=== PATIENT | male | born 1940 | race Caucasian/White ===

== ENCOUNTER 2020-05-21 14:06 | Emergency (ER) | payer MEDICARE, SELFPAY ==
--- NOTE | 2020-05-21 14:15 | ED.EAR ---
HPI - Ear Problem General Chief complaint: Ear Stated complaint: ear pain Time Seen by Provider: 05/21/20 14:15 Source: patient Mode of arrival: ambulatory Limitations: no limitations History of Present Illness HPI Narrative: Lou Mcconnell is an 80-year-old male with a PMH of A. fib, BPH, hypothyroidism, HTN, GERD, who comes to express care with right ear pain- states has been going on for a few days. Used home remedies with no improvement. Related Data Home Medications Medication Instructions Recorded Confirmed cholecalciferol (vitamin D3) 50 50 mcg PO DAILY 11/10/19 mcg (2,000 unit) capsule diltiazem HCl 180 mg 180 mg PO DAILY 11/10/19 capsule,extended release 24 hr glucosamine [id number] 1 tablet PO BID tablet 11/10/19 lexie 1,500 mg-400 unit-100 mg tablet losartan 100 1 tablet PO DAILY 11/10/19 mg-hydrochlorothiazide 25 mg tablet magnesium 250 mg tablet 250 mg PO DAILY 11/10/19 multivitamin 1 tablet PO DAILY 11/10/19 omeprazole 20 mg capsule,delayed 20 mg PO DAILY 11/10/19 release sotalol 80 mg tablet 80 mg PO DAILY 11/10/19 aspirin 81 mg tablet,delayed 81 mg PO DAILY 05/17/20 release amlodipine 05/21/20 hydrochlorothiazide 05/21/20 levothyroxine [Euthyrox] 05/21/20 Allergies Allergy/AdvReac Type Severity Reaction Status Date / Time No Known Allergies Allergy Verified 05/17/20 13:44 Review of Systems Review of Systems: Narrative: CONSTITUTIONAL: Denies fever, chills, sweats. EYES: Denies visual changes, redness, discharge. ENT: Denies rhinorrhea, congestion, sore throat, right otalgia. CARDIOVASCULAR: Denies chest pain, palpitations, edema. RESPIRATORY: Denies dyspnea, wheezing, cough GASTROINTESTINAL: Denies abdominal pain, nausea, vomiting, diarrhea. GENITOURINARY: Denies dysuria, hematuria, abnormal discharge SKIN: Denies rash or itching. NEUROLOGIC: Denies numbness, or focal weakness. PSYCHIATRIC: Denies anxiety or depression. [facility] Family History Family History Mother Family history of respiratory disorder Father Family history of malignant neoplasm Patient's father is Social History Social History Smoking status: Former smoker Second hand tobacco smoke exposure: No Smoking end date: 11/18/1964 Alcohol intake: never Comments At time of signature, I agree with nursing past medical, surgical, social and family history. There is no relevant family history pertinent to the presenting complaint. Exam Narrative: Exam Narrative: GENERAL: This is a well-nourished, well-developed patient, in mild distress. HEAD: normocephalic, atraumatic. EYES: Sclera clear/white. Vision is grossly intact. EARS: External ears normal, L auditory canals clear and without drainage, R ear - Qtip up against TM. Hearing grossly intact. NOSE: External nose normal without nasal discharge, nares without redness, no rhinorrhea. THROAT: Mucous membranes moist, NECK: Neck supple, CARDIOVASCULAR: Regular rate and rhythm without murmurs, gallops, or rubs. RESPIRATORY: Clear to auscultation. Breath sounds equal bilaterally. No wheezes, rales, or rhonchi. GASTROINTESTINAL: Abdomen soft, SKIN: warm, intact with no suspicious lesions or rash, good texture and turgor. NEURO: awake, alert, and oriented to person, place and time. There were no obvious focal neurologic abnormalities. Steady gait EXTREMITIES: Normal range of motion. BACK: Nontender without deformity Course Course Emergency Course: Ear washed out with peroxide/water - cotton removed- started on polymixin ear gtts Directions to not use Q-tips in ears follow-up with primary care physician Vital Signs Vital signs: Vital Signs Temperature 99.0 F 05/21/20 14:16 Pulse Rate 81 05/21/20 14:16 Respiratory Rate 16 05/21/20 14:16 Blood Pressure 137/79 05/21/20 14:16 Pulse Oxi
[2020-05-21 14:16] VITALS: BP 137/79; PULSE 81; RESP 16; TEMP 37.2; O2SAT 99
--- NOTE | 2020-05-21 14:25 | PC.NURSE ---
sewage plant operator in to do ear irrigation. possible fb. qtip.
== END 2020-05-21 14:41 | disposition home or self-care (01) ==
PROVIDERS: Emergency Provider Nurse Practitioner; PCP Internal Medicine
DX: S00.451A Superficial foreign body of right ear, initial encounter (principal); E03.9 Hypothyroidism, unspecified; I10 Essential (primary) hypertension; X58.XXXA Exposure to other specified factors, initial encounter
CPT/HCPCS: 99213; G0463

== ENCOUNTER 2020-10-05 12:29 | Outpatient (CLI) | payer MEDICARE, SELFPAY ==
--- NOTE | ~2020-10-05 | CT_ITS ---
EXAMINATION: CT abdomen pelvis wo con DATE: 10/05/2020 12:49 INDICATION: Kidney disease TECHNIQUE: Computed tomography (CT) of the abdomen and pelvis was performed without intravenous contr ast. Automated exposure control and iterative reconstruction technique were employed. Exam dose: 470 .67 mGy-cm total exam DLP. COMPARISON: 12/07/2011 CT abdomen pelvis with IV contrast material FINDINGS: Cardiomegaly. Sternotomy/Aortic valve replacement. No pericardial or pleural effusion. There is mild atelectasis and/or scarring at the lung bases. Small sliding hiatal hernia. The liver, gallbladder, bile ducts, spleen and pancreas are unremarkable other than some calcified sp lenic granulomas. No bile duct or pancreatic duct dilatation. Normal morphology of the adrenal glands. There are at least 5 pinpoint nonobstructing right renal calculi. There is bilateral renal atrophy an d scarring. No ureteral calculus or hydroureteronephrosis. Left anterolateral urinary bladder diverti cula, the largest measuring approximately 2.4 cm. Moderate prostate enlargement. Prostate calcification. There is extensive abdominal aortic calcification but no aneurysm. There are calcifications at the or igins of the superior mesenteric and renal and inferior mesenteric arteries. No intraperitoneal or re troperitoneal or pelvic mass lesion or adenopathy or ascites. Diverticulosis of the left colon; no CT evidence of diverticulitis. No bowel obstruction, bowel wall thickening, pneumatosis or intraperitoneal free air. Stable evidence of appendectomy. No suspicious osteolytic or osteoblastic lesions. IMPRESSION: Bilateral renal atrophy and scarring Cardiomegaly, aortic valve replacement Small sliding hiatal hernia Nonobstructive nephrolithiasis of right kidney Urinary bladder diverticula Prostate enlargement and calcification Diverticulosis of the colon Reviewed, dictated and finalized at [facility]. Reviewed, dictated and finalized at location B. OMIC ADVISER
== END 2020-10-05 12:30 | disposition home or self-care (01) ==
PROVIDERS: PCP Internal Medicine; Visit Provider Urology
DX: N20.0 Calculus of kidney (principal); Z95.2 Presence of prosthetic heart valve; K44.9 Diaphragmatic hernia without obstruction or gangrene; N40.0 Benign prostatic hyperplasia without lower urinary tract symptoms; I70.0 Atherosclerosis of aorta; K57.30 Diverticulosis of large intestine without perforation or abscess without bleeding; N26.1 Atrophy of kidney (terminal); N32.3 Diverticulum of bladder
CPT/HCPCS: 74176

== ENCOUNTER → 2021-10-06 02:39 | Outpatient (CLI) | payer MEDICARE, SELFPAY ==
[2021-10-06 16:36] LABS: SARS-CoV-2 RNA PCR Positive
== END ==
PROVIDERS: PCP Internal Medicine; Visit Provider Physician Assistant
DX: U07.1 COVID-19 (principal)
CPT/HCPCS: C9803; U0003; U0005

== ENCOUNTER 2021-10-09 10:34 | Outpatient (RCR) | payer MEDICARE, SELFPAY ==
[2021-10-09 15:25] VITALS: BP 172/69; PULSE 62; RESP 18; TEMP 36.6; O2SAT 97
[2021-10-09] MEDS: FAMOTIDINE 20 MG TABLET PO (15:27)
[2021-10-09] MEDS: ACETAMINOPHEN 325 MG TABLET 650 MG PO (15:27)
[2021-10-09] MEDS: diphenhydrAMINE HCl CAP 25 MG CAPSULE PO (15:28)
--- NOTE | 2021-10-10 13:30 | PCDIET ---
Called Mr Mcconnell and he stated he is more nausea today and coughing more today,but using Mucinex as he was told to do by his caregiver. He does not have any other questions and will call PCP if not better after the Thanksgi holiday.
== END 2021-10-09 16:00 ==
LOC: AMCINF 10:34
PROVIDERS: PCP Internal Medicine; Visit Provider Internal Medicine Hematology & Oncology
DX: Z23 Encounter for immunization (principal); U07.1 COVID-19; I10 Essential (primary) hypertension; I25.10 Atherosclerotic heart disease of native coronary artery without angina pectoris
CPT/HCPCS: A9270; M0243; Q0243

== ENCOUNTER 2022-09-03 07:00 | Outpatient (NON) | payer MEDICARE, SELFPAY | END 2022-09-03 07:01 | disposition home or self-care (01) | LOC: ANHLAB 09-10 16:25 | PROVIDERS: PCP Internal Medicine; Visit Provider Nurse Practitioner | DX: C44.329 Squamous cell carcinoma of skin of other parts of face (principal) | CPT/HCPCS: 88305; 88331 ==

== ENCOUNTER 2022-09-03 14:27 | Outpatient (NON) | payer MEDICARE, SELFPAY | END 2022-09-03 14:28 | disposition home or self-care (01) | LOC: ANHLAB 14:28 | PROVIDERS: PCP Internal Medicine; Visit Provider Nurse Practitioner | DX: C44.92 Squamous cell carcinoma of skin, unspecified (principal) | CPT/HCPCS: 88305; 88331 ==

== ENCOUNTER 2022-09-24 17:32 | Outpatient (NON) | payer MEDICARE, SELFPAY | END 2022-09-24 17:33 | disposition home or self-care (01) | LOC: ANHLAB 17:33 | PROVIDERS: PCP Internal Medicine; Visit Provider Nurse Practitioner | DX: C44.92 Squamous cell carcinoma of skin, unspecified (principal) | CPT/HCPCS: 88305; 88331 ==

== ENCOUNTER → 2023-01-07 12:29 | Outpatient (CLI) | payer MEDICARE, SELFPAY ==
--- NOTE | ~2023-01-07 | XR_ITS ---
XR chest 2V 01/07/2023 12:43 Indication: Asbestos exposure. Procedure: 2 view chest Comparison: Comparison to multiple prior studies sequentially, with oldest reviewed study dated 01/05. Findings: Bibasilar airspace disease, compatible with pneumonia. Small pleural effusions. Status post median sternotomy for CABG. Heart size normal. No acute osseous abnormality. Impression: 1: Bibasilar airspace disease may represent pneumonia and/or atelectasis. 2: Small pleural effusions. Reviewed, dictated and finalized at location B. CH FOREMAN Impression: 1: Bibasilar airspace disease may represent pneumonia and/or atelectasis. 2: Small pleural effusions.
== END ==
PROVIDERS: PCP Internal Medicine; Visit Provider Internal Medicine
DX: Z77.090 Contact with and (suspected) exposure to asbestos (principal); J90 Pleural effusion, not elsewhere classified; R91.8 Other nonspecific abnormal finding of lung field
CPT/HCPCS: 71046

== ENCOUNTER 2023-07-04 14:05 | Outpatient (CLI) | payer MEDICARE, SELFPAY ==
--- NOTE | ~2023-07-04 | CT_ITS ---
EXAMINATION:CT chest high resolution wo ny DATE: 07/04/2023 14:28 INDICATION: Abnormal chest radiograph. TECHNIQUE: Computed tomography (CT) of the chest was performed without intravenous contrast. Automate d exposure control and iterative reconstruction technique were employed. The dose-length product (DLP ) was 335.36 mGy-cm. COMPARISON: Chest 2 views 01/07/2023, chest CT 12/09/2015, CT abdomen and pelvis 10/05/2020 FINDINGS: There is mild emphysema. There is bilateral pleural thickening inferiorly. No pleural effus ion. There is mild peripheral rounded atelectasis in the right middle lobe, lower lobes, and lingula. Calcified pulmonary nodules and calcified hilar and mediastinal lymph nodes are consistent with old granulomatous disease. Cardiomegaly is noted. There are coronary artery calcifications. There are winifred nges of coronary artery bypass grafting aortic valve replacement. No pericardial effusion. Calcificat ions in the spleen are consistent with old granulomatous disease. There is a 2 mm stone in right kidn ey. Aortic atherosclerosis is noted. There is severe cervical spondylosis and mild thoracic spondylo sis. IMPRESSION: 1. Chronic bilateral pleural thickening with chronic rounded atelectasis in the inferior lungs. 2. Mild emphysema. Reviewed, dictated and finalized at location A.
== END 2023-07-04 14:06 | disposition home or self-care (01) ==
PROVIDERS: PCP Internal Medicine; Visit Provider Internal Medicine
DX: J98.11 Atelectasis (principal); J92.9 Pleural plaque without asbestos; J43.9 Emphysema, unspecified
CPT/HCPCS: 71250

== ENCOUNTER 2025-03-15 10:57 | Emergency (ER) | payer MEDICARE, SELFPAY ==
--- NOTE | ~2025-03-15 | XR_ITS ---
EXAMINATION: XR abdomen/kub 1V DATE: 03/15/2025 15:13 INDICATION: Constipation TECHNIQUE: A supine view of the abdomen on 2 radiographs was obtained. COMPARISON: CT dated 10/05/2020 FINDINGS: No significant evident colonic stool. There is gas scattered throughout multiple nondilated loops of bowel in the abdomen and pelvis. 2 mm stone projecting of the mid right kidney. Lung bases are clear. Heart size is normal. Surgical clips project over the heart likely related to prior coronary artery bypass grafting. Mild lumbar dextrocurvature with mild spondylosis. IMPRESSION: 1. Nonobstructive bowel gas pattern with no significant colonic stool. 2. 2 mm right renal stone. Reviewed, dictated and finalized at location B.
[2025-03-15 11:23] VITALS: BP 147/85; PULSE 78; RESP 16; TEMP 36.5; O2SAT 98
--- OUTSIDE RECORDS SUMMARY | 2025-03-15 12:50 | XMS_ITS | Clinical Summary ---
Author Organization [facility] Address [address], [address] [address] Phone Care Team Providers Care Hand Bootmaker Name Role Phone BangLazaro michael Cherise CUNNINGHAM Primary Care Provider Allergies No known active allergies Medications polyethylene glycol (MIRALAX) Powder Use entire 255g bottle with 64oz of clear liquid as directed for colonoscopy prep. 255 g 7 Active sotalol (BETAPACE) 80 MG Tablet TK 1 T PO BID 3 7 Active levothyroxine (SYNTHROID) 75 MCG Tablet TK 1 T PO QD 2 7 Active atorvastatin (LIPITOR) 20 MG Tablet TK 1 T PO QD 2 7 Active omeprazole (PRILOSEC) 20 MG CAPSULE DELAYED RELEASE TK 1 C PO QD AC 2 7 Active doxazosin (CARDURA) 8 MG Tablet TK 1 T PO QD 1 7 Active losartan-hydroc hlorothiazide (HYZAAR) 100-12.5 MG Tablet TK 1 T PO D 1 7 Active vitamin E (TOCOPHEROL) 400 UNIT Capsule Take 400 Units by mouth daily. Active vitamin b-12 (CYANOCOBALAMIN ) 500 MCG Tablet Take 500 mcg by mouth daily. Active Pyridoxine HCl (VITAMIN B6) 200 MG Tablet Take by mouth. A ctive Cholecalciferol (VITAMIN D-3 SUPER STRENGTH) 2000 UNIT Tablet Take by mouth. Activ e Coenzyme Q10 (COQ10) 200 MG Capsule Take by mouth. Activ e Potassium 99 MG Tablet Take by mouth. Activ e Social History Tobacco Use Types Packs/Day Years Used Date Smoking Tobacco: Former Smokeless Tobacco: Never Alcohol Use Standard Drinks/Week Comments No 0 (1 standard drink = 0.6 oz pur e alcohol) Sex and Gender Information Value Date Recorded Sex Assigned at Not on file Legal Sex Male 9:24 PM CDT Gender Identity Not on file Sexual Orientation Not on file Plan of Treatment Health Maintenance Due Date Last Done Comments Hepatitis C Virus (HCV) Screening 1940 TdaP Immunization 1940 Pneumococcal Immunization (5 0+ years) (1 of 1 - PCV) 1989 Zoster Immunization (1 of 2) 1989 Respiratory Syncytial Virus (RSV) Immunization (Adult) (1 - 1-dose 75+ series) 2014 Influenza Immunization (#1) 2024 SARS-COV-2 Immunization (1 - 2023- season) 2024 Hepatitis B Immunization Aged Out No longer eligible based on patient's age to complete this topic Meningococcal Immunization (ACWY) Aged Out No longer eligible based on patient's age to complete this topic Rotavirus Immunization Aged Out No lo nger eligible based on patient's age to complete this topic Care Teams Hand Bootmaker Relationship Specialty Start Date End Date Lazaro Walters DO [address] [place] [address] PCP - General Internal Medicine 06/14/17
--- OUTSIDE RECORDS SUMMARY | 2025-03-15 12:50 | XMS_ITS | Encounter Summary ---
Author Organization [facility] Address [address] [place] [address] Care Team Providers Care Steam Tunnel Feeder Name Role Phone Lazaro Walters MD Primary Care Provider [phone]- [phone] Lazaro Walters MD Primary Care Provider [phone]- [phone] Encounter Details Date Type Department Care Team (Late st Contact Info) Description 11/01/2016 Orders Only [facility] ProviderDragan MD [address] [place] [address] Social History Tobacco Use Types Packs/Day Years Used Date Smoking Tobacco: Former Cigarettes Q uit: 11/18/1964 Alcohol Use Standard Drinks/Week Comments No 0 (1 standard drink = 0.6 oz pur e alcohol) Sex and Gender Information Value Date Recorded Sex Assigned at Not on file Legal Sex Male 1:56 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 Historical Provider [facility] Final Result documented in this encounter Visit Diagnoses Not on filedocumented in this encounter Care Teams Steam Tunnel Feeder Relationship Specialty Start Date End Date Lazaro Walters MD [address] [place] [address] PCP - General 02/15/17 Lazaro Walters MD [address] [address] PCP - General 11/03/15 02/14/17 documented as of this encounter
--- OUTSIDE RECORDS SUMMARY | 2025-03-15 12:50 | XMS_ITS | Encounter Summary ---
Author Organization [facility] Address [address] [place] [address] Care Team Providers Care Criminology Professor Name Role Phone Lazaro Walters MD Primary Care Provider [phone]- [phone] Lazaro Walters MD Primary Care Provider +1- [phone] Encounter Details Date Type Department Care Team (Late st Contact Info) Description 02/11/2017 Orders Only [facility] ProviderDragan MD [address] [place] [address] Social History Tobacco Use Types Packs/Day Years Used Date Smoking Tobacco: Former Cigarettes Q uit: 11/18/1964 Alcohol Use Standard Drinks/Week Comments No 0 (1 standard drink = 0.6 oz pur e alcohol) Sex and Gender Information Value Date Recorded Sex Assigned at Not on file Legal 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 Historical Provider [facility] Final Result documented in this encounter Visit Diagnoses Not on filedocumented in this encounter Care Teams Criminology Professor Relationship Specialty Start Date End Date Lazaro Walters MD [address] [place] [address] PCP - General 02/15/17 Lazaro Walters MD [address] [address] PCP - General 11/03/15 02/14/17 documented as of this encounter
--- OUTSIDE RECORDS SUMMARY | 2025-03-15 12:50 | XMS_ITS | Clinical Summary ---
Author Organization [facility] [address] Address [address] [place] [address] Care Team Providers Care Automobile Upholstery Trim Installer Name Role Phone Lazaro Walters MD Primary Care Provider +1- [phone] Allergies No known active allergies Medications multivitamin tablet tablet take 1 tablet by oral route every day with food 0 04/21/20 12 Active cyanocobalamin (vitamin B-12) 500 mcg tablet take 1 by Oral route once 0 0 05/06/20 14 Active aspirin (ASPIRIN LOW DOSE) 81 mg tablet take 1 tablet by oral route every day 0 0 12/30/19 16 Active doxazosin (CARDURA) 8 mg tablet take 1 tablet by oral route every day 0 04/21/20 12 Active GLUCOSAMINE HCL/CHONDR [place] A NA (GLUCOSAMINE-C HONDROITIN) 167-133 mg capsule take one by mouth daily 0 0 11/01/20 16 Active cholecalcifero l (VITAMIN D3) 2,000 unit capsule take 1 by Oral route once 0 0 11/01/20 16 Active omeprazole (PriLOSEC) 20 mg capsule Take 1 capsule (20 mg total) by mouth daily. 0 03/17/20 18 Active potassium 99 mg tablet Take 1 tablet (99 mg total) by mouth daily Active levothyroxine (Synthroid) 75 mcg tablet Take 1 tablet (75 mcg total) by mouth construction project coordinator before breakfast 0 08/07/20 21 Active sotaloL (BETAPACE) 80 mg tablet Take 1 tablet (80 mg total) by mouth daily 90 tablet 02/03/20 25 Active losartan-hydro CHLOROthiazide (HYZAAR) 100-12.5 mg per tablet Take 1 tablet by mouth once daily 100 tablet 2 03/01/20 25 Active losartan-hydro CHLOROthiazide (HYZAAR) 100-12.5 mg per tablet Take 1 tablet by mouth daily 100 tablet 1 08/06/20 24 025 Discontinued Active Problems Problem Noted Date Diagnosed Date Dizziness 08/22/2022 Bradycardia 08/20/2022 Medication management 07/15/2019 Erectile dysfunction 03/17/2018 Hypercholesterolemia 03/19/2016 Overview (02/21/2017): Hypercholesterolemia S/P aortic valve replacement with bioprosthetic valve 12/30/2015 Overview (02/22/2017): S/P aortic valve replacement with bioprosthetic valve Paroxysmal atrial flutter 12/30/2015 Overview (02/22/2017): Atrial flutter, paroxysmal History of coronary artery bypass surgery 2015 Overview (02/22/2017): Hx of CABG Follow-up examination follow ing treatment with high-risk medication 12/30/2015 Overview (02/22/2017): alf current use of antiarrhythmic drug Upper gastrointestinal hemorrhage 12/30/2015 Overview (02/22/2017): Upper GI bleed Essential hypertension 12/30/2015 Overview (02/22/2017): Essential hypertension 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 Overview (02/22/2017): STATUS-POST PTCA Pure hypercholesterolemia 04/03/2014 Overview (02/21/2017): PURE HYPERCHOLESTEROLEM 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 04/03 Overview (02/21/2017): CRNRY ATHRSCL NATVE VSSL Resolved Problems Problem Noted Date Diagnosed Date Resolved Date Nonrheumatic aortic valve stenosis 12/30/2015 08/20/2022 Overview (02/22/2017): Non-rheumatic aortic stenosis Benign hypertension 04/03/2014 03/17/20 18 Overview (02/21/2017): BENIGN HYPERTENSION Surgical History Surgery Date Site/Laterality Comments KNEE SURGERY Knee surgery HEART SURGERY HERNIA REPAIR Medical History Medical History Date Comments Gastroesophageal reflux disease GERD Hx Other Medical Cataracts Calculus of kidney Kidney Stones Heart disease 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 Thyroid disease HL (hearing loss) Family History Medical History Relation Name Comments Cancer Brother Other Father Old age; Pneumonia Mother Pneumonia; Caus e of : Pneumonia Cancer Other Cancer Sister Relation Name Status Comments Brother Father Alive Mother (Age 44) Other Sister Social History Tobacco Use Types Packs/Day Years Used Date Smoking Tobacco: Former Cigarettes Q uit: 03/17/1964 Smokeless Tobacco: Never Tobacco Cessation:Counseling Given: Not Answered Alcohol Use Standard Drinks/Week Comments Yes 0 (1 standard drink = 0.6 oz pur e alcohol) Sex and Gender Information Value Date Recorded Sex Assigned at Not on file Legal Sex Male 1:56 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 Gender Identity Not on file Sexual Orientation Not on file Obstetrics History Last Filed Vital Signs Vital Sign Reading Time Taken Comments Blood Pressure 130/78 12/01/2024 2:53 PM PILOT 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 Pulse 83 12/01/2024 2:53 PM PILOT 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 Temperature 36.7 C (98 F) 09/06/2020 1:12 PM CDT Respiratory Rate 16 10/27/2024 11:51 AM PILOT 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 Oxygen Saturation 96% 12/01/2024 2:53 PM PILOT 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 Inhaled Oxygen Concentration - - Weight 85.7 kg (189 lb) 12/01/2024 2:53 PM PILOT 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 Height 177.8 cm (5' 10 ) 12/01/2024 2:53 PM PILOT 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 Body Mass Index 27.12 12/01/2024 2:53 PM PILOT 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 Plan of Treatment Health Maintenance Due Date Last Done Comments Depression Screening 1940 Fall Risk Assessment 1940 DTaP/Tdap/Td Vaccine (1 - Tdap) 1950 Hepatitis B Screening 1957 Zoster Vaccine (1 of 2) 1989 Well Visit 65+ 02/09/2004 Pneumococcal vaccine 65+ (2 of 2 - PPSV23) 10/10/2016 10/10/2015 Influenza Vaccine (Season Ended) 2025 09/08/2018, 08/18/2017, 09/19/2016, Additional history exists Insurance [employer] MEDICARE GOLD [facility] T MEDICARE GOLD [employer] MEDICARE GOLD Care Teams Automobile Upholstery Trim Installer Relationship Specialty Start Date End Date Lazaro Walters MD [address] [facility] [place] [address] PCP - General 02/15/17
--- OUTSIDE RECORDS SUMMARY | 2025-03-15 12:50 | XMS_ITS | Encounter Summary ---
Author Organization [facility] Address [address] [place] [address] Care Team Providers Care Entry Level Name Role Phone Lazaro Walters DO Primary Care Provider [phone] Encounter Details Date Type Department Care Team (Late st Contact Info) Description 08/01/2022 Lab Requisition [facility] DermPath Lab [address] [facility] [place] [id number] Lloyd Liu MD [address] [place] [address] Social History Tobacco Use Types Packs/Day Years Used Date Smoking Tobacco: Never Assessed Sex and Gender Information Value Date Recorded Sex Assigned at Not on file Legal Sex Male 4:47 PM CDT Gender Identity Not on file Sexual Orientation Not on file documented as of this encounter Plan of Treatment Not on file documented as of this encounter Procedures Procedure Name Priority Date/Time Associated Diagnosis Comments DERMATOPATHOLOGY Routine 07/31/2022 12:0 0 AM CDT documented in this encounter Results * DERMATOPATHOLOGY (07/31/2022 12:00 AM CDT) Case Report Dermatopathology Report Case: [id number] Authorizing Provider: Lloyd Liu MD Collected: 07/31/2022 12:00 AM Ordering Location: [facility] DermPath Lab Received: 08/01/2022 02:03 PM Pathologist: Radha Santos MD Specimens: A) - Skin, post border left sideburn B) - Skin, left med to preauricular scar C) - Skin, below and post to left earlobe D) - Skin, above mid left jawline 2 3:37 PM T DERMATOPATHOLOGY LABORATORY Final Diagnosis Specimen A. SKIN, post border left sideburn: SQUAMOUS CELL CARCINOMA, MODERATELY DIFFERENTIATED (C44.329) Specimen B. 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 SKIN, below and post to left earlobe: SQUAMOUS CELL CARCINOMA IN SITU (SOSA'S DISEASE) (D04.22) Specimen D. 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 The specimen consists of a shave biopsy measuring [id number]. Jar 0. Specimen B: Received is one formalin filled container labeled with the patient's name and designated left med to preauricular scar. The specimen consists of a shave biopsy measuring 8p9e5pm. Jar 0. Specimen C: Received is one formalin filled container labeled with the patient's name and designated below and post to left earlobe. The specimen consists of a shave biopsy measuring 6o6d1ec. Jar 0. Specimen D: Received is one formalin filled container labeled with the patient's name and designated above mid left jawline. The specimen consists of a shave biopsy measuring [id number]. Jar 0. 2 3:37 PM T DERMATOPATHOLOGY LABORATORY Microscopic Description Specimen A. SKIN, post border left sideburn: There are nests of squamous epithelial cells which arise from the epidermis and extend into the dermis. The nests have only focal central keratinization and rare horn coreen formation. Specimen B. SKIN, left med to preauricular scar: The epidermis shows parakeratosis, full thickness disorderly maturation of keratinocytes, mitoses at different levels, and dyskeratotic cells. Specimen C. SKIN, below and post to left earlobe: The epidermis shows parakeratosis, full thickness disorderly maturation of keratinocytes, mitoses at different levels, and dyskeratotic cells. Specimen D. SKIN, above mid left jawline: The epidermis shows parakeratosis, full thickness disorderly maturation of keratinocytes, mitoses at different levels, and dyskeratotic cells. 2 3:37 PM CDT DERMATOPATHOLOGY LABORATORY Disclaimer An external and internal positive and negative controls are appropriate for the histochemical, immunohistochemical and immunofluorescence stain(s) in this case (if any), except where stated explicitly. The performance characteristics of the stain(s) cited in this report were developed and its performance characteristic determined by the Dermatopathology Laboratory at [facility], directed by Dr. Marifer Valdez. These tests need not be, and therefore are not, approved by the [place] Food and Drug Administration. The tests are used for clinical purposes. Billing Codes Specimen Charges Stain Charges 61158 88422 27365 36899 1 1 1 1 2 3:37 PM CDT DERMATOPATHOLOGY LABORATORY Embedded Images 2 3:37 PM CDT DERMATOPATHOLOGY LABORATORY Pathology/Cytology TISSUE SPECIMEN FROM SKIN / Unknown 07/31/2022 08/01/2022 2:03 PM CDT Miscellaneous samples (specimen) TISSUE SPECIMEN FROM SKIN / Unknown 07/31/2022 08/01/2022 2:03 PM CDT Miscellaneous samples (specimen) TISSUE SPECIMEN FROM SKIN / Unknown 07/31/2022 08/01/2022 2:03 PM CDT Miscellaneous samples (specimen) TISSUE SPECIMEN FROM SKIN / Unknown 07/31/2022 08/01/2022 2:03 PM CDT us Lloyd Liu MD LAB - PATHOLOGY/CYTOLOGY ORD ERABLES Final Result DERMATOPATHOLOGY LABORATORY [facility] - Department of Dermatology [facility] Medicine [address] [place] [address], [address] [place] [address], [facility] [phone] documented in this encounter Visit Diagnoses Not on filedocumented in this encounter Care Teams Entry Level Relationship Specialty Start Date End Date Lazaro Walters DO [address] [facility] [address] [place] [address] PCP - General 09/10/22 documented as of this encounter
--- OUTSIDE RECORDS SUMMARY | 2025-03-15 12:50 | XMS_ITS | Encounter Summary ---
Author Organization [facility] Address [address] [facility] [place] [address] Care Team Providers Care Project Eng Name Role Phone Lazaro Walters DO Primary Care Provider [phone] Encounter Details Date Type Department Care Team (Late st Contact Info) Description 07/12/2022 Lab Requisition [facility] DermPath Lab [address] [facility] [place] [id number] Lloyd Liu MD [address] [place] [address] Social History Tobacco Use Types Packs/Day Years [...] Priority Date/Time Associated Diagnosis Comments DERMATOPATHOLOGY Routine 07/11/2022 12:0 0 AM CDT documented in this encounter Results * DERMATOPATHOLOGY (07/11/2022 12:00 AM CDT) Case Report Dermatopathology Report Case: [id number] Authorizing Provider: Lloyd Liu MD Collected: 07/11/2022 12:00 AM Ordering Location: [facility] DermPath Lab Received: 07/12/2022 04:46 PM Pathologist: Steff Yi MD Specimens: A) - Skin, right anterior edge sideburn B) - Skin, right cheek lateral to pink nevus C) - Skin, right mid jawline D) - Skin, lateral to right chin crease on cheek 2 4:[address] [facility] DERMATOPATHOLOGY LABORATORY Final Diagnosis Specimen A. SKIN, right anterior edge sideburn: HYPERPLASTIC (HYPERTROPHIC) ACTINIC KERATOSIS (L57.0) Specimen B. SKIN, right cheek lateral to pink nevus: HYPERPLASTIC (HYPERTROPHIC) ACTINIC KERATOSIS (L57.0) Specimen C. SKIN, right mid jawline: BASAL CELL CARCINOMA, NODULAR TYPE (C44.319) Specimen D. SKIN, lateral to right chin crease on cheek: HYPERPLASTIC (HYPERTROPHIC) ACTINIC KERATOSIS (L57.0) 2 4:[address] [facility] DERMATOPATHOLOGY LABORATORY Clinical History A-D: R/O SCC vs. BCC 2 4:[address] [facility] DERMATOPATHOLOGY LABORATORY Gross Description Specimen A: Received is one formalin filled container labeled with the patient's name and designated right anterior edge sideburn. The specimen consists of a shave biopsy measuring 2w0e5ea. Jar 0. Specimen B: Received is one formalin filled container labeled with the patient's name and designated right cheek lateral to pink nevus. The specimen consists of a shave biopsy measuring 9k8z1re. Jar 0. Specimen C: Received is one formalin filled container labeled with the patient's name and designated right mid jawline. The specimen consists of a shave biopsy measuring 6h9p0wc. Jar 0. Specimen D: Received is one formalin filled container labeled with the patient's name and designated lateral to right chin crease on cheek. The specimen consists of a shave biopsy measuring 0t4p3eh. Jar 0. 2 4:[address] [facility] DERMATOPATHOLOGY LABORATORY Microscopic Description Specimen A. SKIN, right anterior edge sideburn: There is hyperkeratosis alternating with parakeratosis. There is epidermal hyperplasia with disorderly maturation of keratinocytes with nuclear pleomorphism confined to the lower half of the epidermis. Specimen B. SKIN, right cheek lateral to pink nevus: There is hyperkeratosis alternating with parakeratosis. There is epidermal hyperplasia with disorderly maturation of keratinocytes with nuclear pleomorphism confined to the lower half of the epidermis. Specimen C. SKIN, right mid jawline: Within the dermis there are aggregates of basaloid cells with a high nuclear to cytoplasmic ratio and peripheral palisading. Specimen D. SKIN, lateral to right chin crease on cheek: There is hyperkeratosis alternating with parakeratosis. There is epidermal hyperplasia with disorderly maturation of keratinocytes with nuclear pleomorphism confined to the lower half of the epidermis. 2 4:04 PM CDT DERMATOPATHOLOGY LABORATORY Disclaimer An external and internal positive and negative controls are appropriate for the histochemical, immunohistochemical and immunofluorescence stain(s) in this case (if any), except where stated explicitly. The performance characteristics of the stain(s) cited in this report were developed and its performance characteristic determined by the Dermatopathology Laboratory at [facility], directed by Dr. Marifer Valdez. These tests need not be, and therefore are not, approved by the [place] Food and Drug Administration. The tests are used for clinical purposes. Billing Codes Specimen Charges Stain Charges 73466 33388 [id number] [id number] 1 1 1 1 2 4:04 PM CDT DERMATOPATHOLOGY LABORATORY Embedded Images 2 4:04 PM CDT DERMATOPATHOLOGY LABORATORY Pathology/Cytology TISSUE SPECIMEN FROM SKIN / Unknown 07/11/2022 07/12/2022 4:46 PM CDT Miscellaneous samples (specimen) TISSUE SPECIMEN FROM SKIN / Unknown 07/11/2022 07/12/2022 4:46 PM CDT Miscellaneous samples (specimen) TISSUE SPECIMEN FROM SKIN / Unknown 07/11/2022 07/12/2022 4:46 PM CDT Miscellaneous samples (specimen) TISSUE SPECIMEN FROM SKIN / Unknown 07/11/2022 07/12/2022 4:46 PM CDT us Lloyd Liu MD LAB - PATHOLOGY/CYTOLOGY ORD ERABLES Final Result DERMATOPATHOLOGY LABORATORY [facility] - Department of Dermatology [facility] Medicine [address] [place] [address], 3rd [place] [address], [facility] [phone] documented in this encounter Visit Diagnoses Not on filedocumented in this encounter Care Teams Project Eng Relationship Specialty Start Date End Date Lazaro Walters DO [address] [facility] [address] [place] [address] PCP - General 09/10/22 documented as of this encounter
--- OUTSIDE RECORDS SUMMARY | 2025-03-15 12:50 | XMS_ITS | Continuity of Care Document ---
Author Organization [facility] Address [address] [place] [address] [address] [place] [address] Phone Care Team Providers Care State Trooper Name Role Phone Riki Soto Unavailable Unavailable Procedures Procedure Date Eye Exam & Treatment Refraction Visual Field Examination(s) Advance Directives Directive Yes / No Effective Date File Name No Information Encounters Encounter Description Practice Location Reason(s) For Visit Diagnoses Date Provider Providers Copied on Encounter [facility], [address] [place] [address] [address], [place], [place], [id number], tel:[phone] [facility] No Information [address] [facility] [address], [place], [place], [facility], . tel:[phone] [facility], [address] [place] [address] [address], [place], [place], [id number], tel:[phone] [facility] No Information [address] Giovanna [address], [place], [place], [facility], . tel:[phone] Referring Provider: Giovanna Vo [address], [place], [place], [facility]. tel:[phone] Family History Family Member Type Diagnosis Age At Onset No Information Payers Payer name Insurance type Covered alliance party ID Authoriza tion(s) [employer] Plan CI [id number] Social History Type Description Quantity Date Captured Comments Sex Male Smoking Status No Information Chief Complaint And Reason For Visit No Information Reason For Referral Reason For Referral No Information History Of Present Illness Encounter Date Complaint History Of Prese nt Illness No Information Functional Status Date Functional Assessmen t No Information Instructions Date Instruction Additional Infor mation No Information Assessments Type Assessment Date No Information Patient Care Teams Name Effective Dates (start - stop) Status Members No Information
--- OUTSIDE RECORDS SUMMARY | 2025-03-15 12:50 | XMS_ITS | Referral Summary ---
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 0 08/07/20 21 Active sotaloL [...] treatment with high-risk medication 12/30/2015 Overview (02/22/2017): shelter current use of antiarrhythmic drug Upper gastrointestinal hemorrhage 12/30/2015 Overview (02/22/2017): Upper GI bleed Essential hypertension 12/30/2015 Overview (02/22/2017): Essential hypertension 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 Overview (02/22/2017): STATUS-POST PTCA Pure hypercholesterolemia 04/03/2014 Overview (02/21/2017): PURE HYPERCHOLESTEROLEM 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 Overview (02/21/2017): CRNRY ATHRSCL NATVE VSSL Resolved Problems Problem Noted Date Diagnosed Date Resolved Date Nonrheumatic aortic valve stenosis 12/30/2015 08/20/2022 Overview (02/22/2017): Non-rheumatic aortic stenosis Benign hypertension 04/03/2014 03/17/20 18 Overview (02/21/2017): BENIGN HYPERTENSION Social History Tobacco Use Types Packs/Day Years Used Date Smoking Tobacco: Former Cigarettes Q uit: 03/17/1964 Smokeless Tobacco: Never Tobacco Cessation:Counseling Given: Not Answered Alcohol Use Standard Drinks/Week Comments Yes 0 (1 standard drink = 0.6 oz pur e alcohol) Sex and Gender Information Value Date Recorded Sex Assigned at Not on file Legal Sex Male 1:56 AM WIRE WALKER Gender Identity Not on file Sexual Orientation Not on file Last Filed Vital Signs Vital Sign Reading Time Taken Comments Blood Pressure 130/78 12/01/2024 2:53 PM WIRE WALKER Pulse 83 12/01/2024 2:53 PM WIRE WALKER Temperature 36.7 C (98 F) 09/06/2020 1:12 PM CDT Respiratory Rate 16 10/27/2024 11:51 AM WIRE WALKER Oxygen Saturation 96% 12/01/2024 2:53 PM WIRE WALKER Inhaled Oxygen Concentration - - Weight 85.7 kg (189 lb) 12/01/2024 2:53 PM WIRE WALKER Height 177.8 cm (5' 10 ) 12/01/2024 2:53 PM WIRE WALKER Body Mass Index 27.12 12/01/2024 2:53 PM WIRE WALKER Plan of Treatment Not on file Insurance [employer] MEDICARE [facility] Address: [facility] [id number] [place] [address] [facility] AETNA MEDICARE GOLD [employer] MEDICARE GOLD Care Teams Clinical Trainer Relationship Specialty Start Date End Date Lazaro Walters MD [address] [place] [address] PCP - General 02/15/17
--- OUTSIDE RECORDS SUMMARY | 2025-03-15 12:50 | XMS_ITS | Clinical Summary ---
Author Organization [facility] Address [address] [facility] [place] [address] Care Team Providers Care Public Health Doctor Name Role Phone Lazaro Walters DO Primary Care Provider [phone] Source Comments [facility],non-owned Affiliates and Associated Physician Practices is amultiple site organization consisting of ambulatory clinics and hospital sitesin [place], [place], [place] and [place]. This disclosure is being madepursuant to the Care Everywhere program and may not contain all information available regarding this patient. Last updated 18.[facility] [employer] Social History Tobacco Use Types Packs/Day Years Used Date Smoking Tobacco: Never Assessed Sex and Gender Information Value Date Recorded Sex Assigned at Not on file Legal Sex Male 4:47 PM CDT Gender Identity Not on file Sexual Orientation Not on file Plan of Treatment Health Maintenance Due Date Last Done Comments DTAP/TDAP/TD VACCINES (1 - Tdap) 1958 PNEUMOCOCCAL VACCINE 50+ (1 of 1 - PCV) 1989 ZOSTER VACCINE (1 of 2) 1989 Respiratory Syncytial Virus (RSV) Vaccine Pt: or over 60 yrs (1 - 1-dose 75+ series) 2014 COVID-19 VACCINE ( - 2023-2 5 season) 2024 DEPRESSION SCREENING 11/18/2024 INFLUENZA VACCINE (Season Ended) 2025 HEPATITIS B VACCINE Aged Out No longe r eligible based on patient's age to complete this topic HIB VACCINE Aged Out No longer eligi ble based on patient's age to complete this topic HPV VACCINE Aged Out No longer eligi ble based on patient's age to complete this topic MENINGOCOCCAL (Group B) VACC INE SHARED DECISION-MAKING Aged Out No longer eligibl e based on patient's age to complete this topic MENINGOCOCCAL GROUPS A/C/Y/W VACCINE Aged Out No longer eligible b ased on patient's age to complete this topic Insurance [employer] Care Teams Public Health Doctor Relationship Specialty Start Date End Date Lazaro Walters DO [address] [facility] [address] [place], [place] [id number] PCP - General 09/10/22
--- NOTE | 2025-03-15 12:58 | ED.ABDPAIN ---
HPI - Abdominal Pain General Chief Complaint: Abdominal Pain <Humaira Guaman PA-C - Last Filed: 03/15/25 17:45> Stated Complaint: I think I have a blocked bowel <Humaira Guaman PA-C - Last Filed: 03/15/25 17:45> Time Seen by Provider: 03/15/25 12:58 <Humaira Guaman PA-C - Last Filed: 03/15/25 17:45> Focused HPI: This is a 85 year old male that presents to the ER for a possible bowel blockage. Reports he has tried everything and he has not been able to have bowel movement. Reports his last BM was 2 days ago. Denies fevers, vomiting. GENERAL: Elderly, well-nourished, and in no acute distress. HEAD: Normocephalic, atraumatic. CHEST: Clear to auscultation. ?No respiratory distress. HEART: Regular rate and rhythm.? NEURO: ?Alert and oriented x3. Patient screened in triage and initial orders placed.? ?Additional care and disposition to be based upon?diagnostic testing and treatment. <Humaira Guaman PA-C - Last Filed: 03/15/25 17:45> History of Present Illness HPI narrative: Agree with HPI. Passing gas but no bowel movement for 2 days. Only ate an egg and bowl of soup yesterday. He gave himself an enema today is taking multiple laxatives without having a bowel movement. <Wayne Guzman MD - Last Filed: 03/15/25 16:13> Related Data Home Medications: Home Medications ?Medication ?Instructions ?Recorded ?Confirmed ?Last Taken ?Type cholecalciferol (vitamin D3) 50 50 mcg PO DAILY 11/10/19 02/19/25 Unknown History mcg (2,000 unit) capsule glucosamine [id number] 1 tablet PO BID 11/10/19 02/19/25 Unknown History lexie 1,500 mg-400 unit-100 mg tablet (Osteo Bi-Flex (5-Loxin)) losartan 100 1 tablet PO DAILY 11/10/19 02/19/25 Unknown History mg-hydrochlorothiazide 25 mg tablet magnesium 250 mg tablet 250 mg PO DAILY 11/10/19 02/19/25 Unknown History multivitamin (Multiple Vitamins 1 tablet PO DAILY 11/10/19 02/19/25 Unknown History tablet) sotalol 80 mg tablet 80 mg PO DAILY 11/10/19 02/19/25 Unknown History aspirin 81 mg tablet,delayed 81 mg PO DAILY 05/17/20 02/19/25 Unknown History release (Adult Low Dose Aspirin) zinc 50 mg tablet 50 mg PO DAILY 11/03/21 02/19/25 Unknown History <Humaira Guaman PA-C - Last Filed: 03/15/25 17:45> Allergies/Adverse Reactions: Allergies Allergy/AdvReac Type Severity Reaction Status Date / Time No Known Allergies Allergy Verified 03/15/25 11:27 <Humaira Guaman PA-C - Last Filed: 03/15/25 17:45> Review of Systems Review of Systems: All systems reviewed & are unremarkable except as noted in HPI and below <Wayne Guzman MD - Last Filed: 03/15/25 16:13> Constitutional: Constitutional: Reports no additional constitutional complaints <Wayne Guzman MD - Last Filed: 03/15/25 16:13> Cardiovascular: Cardiovascular: Reports no additional cardiovascular complaints <Wayne Guzman MD - Last Filed: 03/15/25 16:13> Respiratory: Respiratory: Reports no additional respiratory complaints <Wayne Guzman MD - Last Filed: 03/15/25 16:13> Gastrointestinal: Gastrointestinal: Reports no additional gastrointestinal complaints <Wayne Guzman MD - Last Filed: 03/15/25 16:13> [facility] Past Medical History Medical History: Medical History (Updated 03/15/25 @ 16:12 by Wayne Guzman MD) Hypothyroidism Paroxysmal atrial flutter Hyperlipidemia Essential (primary) hypertension SCC (squamous cell carcinoma), face <Humaira Guaman PA-C - Last Filed: 03/15/25 17:45> Surgical History Surgical History: Surgical History (Updated 03/15/25 @ 16:10 by Wayne Guzman MD) S/P CABG (coronary artery bypass graft) S/P AVR <KIMBERLY Alvarez Last Filed: 03/15/25 17:45> Family History Family History: Family History Mother Family history of respiratory disorder Father Family history of malignant neoplasm Patient's father is <Humaira Guaman PA-C - Last Filed: 03/15/25 17:45> Social History Social History: Social History Smoking packs per day: 0.5 Smoking cigarettes per day: 10.0 Years smoked: 10 Smoking pack-years: 5.00 Smoking status: Former smoker Tobacco type: cigarettes Second hand tobacco smoke exposure: No Smoking end date: 11/18/1964 Alcohol intake: never Substance use: never Lack of Transportation: No Lack of Food: Never True Current Housing: I Have Housing Concerned About Future Housing: No Difficulty Paying Gas/Electric Bills: No Difficulty Paying for Meds: No Currently Unemployed: No Education: High School Diploma/GED Difficulty w/ Childcare or Family Care: No Spiritual care concerns: No <Humaira Guaman PA-C - Last Filed: 03/15/25 17:45> Exam Narrative: GENERAL: Well-appearing, well-nourished, and in no acute distress. HEAD: Normocephalic, atraumatic. ENT: Mucous membranes moist. CHEST: Clear to auscultation. No respiratory distress. HEART: Regular rate and rhythm. Normal peripheral pulses. ABDOMEN: Soft, nontender, nondistended. EXTREMITIES: Normal range of motion. No edema. SKIN: Warm, dry, no rash. NEURO: Alert and oriented x3. PSYCH: Normal mood and affect. <Wayne Guzman MD - Last Filed: 03/15/25 16:13> Course Course Emergency Course: Patient resting comfortably. Informed of lab and imaging results. Encouraged him to increase fluid intake and eat actual food. <Wayne Guzman MD - Last Filed: 03/15/25 16:13> Vital Signs Vital signs: Vital Signs Temperature 97.7 F 03/15/25 11:23 Pulse Rate 78 03/15/25 11:23 Respiratory Rate 16 03/15/25 11:23 Blood Pressure 147/85 H 03/15/25 11:23 Pulse Oximetry 98 03/15/25 11:23 Oxygen Delivery Room Air 03/15/25 11:23 Temperature 97.7 F 03/15/25 11:23 Pulse Rate 78 03/15/25 11:23 Respiratory Rate 16 03/15/25 11:23 Blood Pressure 147/85 H 03/15/25 11:23 Pulse Oximetry 98 03/15/25 11:23 Oxygen Delivery Room Air 03/15/25 11:23 <Huamira Guaman PA-C - Last Filed: 03/15/25 17:45> Vital Signs Temperature 97.7 F 03/15/25 11:23 Pulse Rate 78 03/15/25 11:23 Respiratory Rate 16 03/15/25 11:23 Blood Pressure 147/85 H 03/15/25 11:23 Pulse Oximetry 98 03/15/25 11:23 Oxygen Delivery Room Air 03/15/25 11:23 Temperature 97.7 F 03/15/25 11:23 Pulse Rate 78 03/15/25 11:23 Respiratory Rate 16 03/15/25 11:23 Blood Pressure 147/85 H 03/15/25 11:23 Pulse Oximetry 98 03/15/25 11:23 Oxygen Delivery Room Air 03/15/25 11:23 <Wayne Guzman MD - Last Filed: 03/15/25 16:13> MDM - Abdominal Pain Lab Data Result diagrams: 03/15/25 13:28 03/15/25 13:28 <Humaira Guaman PA-C - Last Filed: 03/15/25 17:45> Labs: Lab Results 03/15/25 Range/Units 13:28 WBC 6.1 (4.5-10.0) K/mm3 RBC 3.73 L (4.6-6.20) M/mm3 Hgb 11.8 L (14.0-18.0) g/dL Hct 36.8 L (42.0-52.0) % MCV 98.7 (80-100) fl MCH 31.6 (26-34) pg MCHC 32.1 (32-36) g/dl RDW 12.4 (11.5-14.5) % Plt Count 163 (150-375) k/mm3 MPV 9.4 (7.4-10.4) fl Immature Gran % (Auto) 0.2 (0-0.5) % Neut % (Auto) 68.3 (45.5-73.1) % Lymph % (Auto) 17.9 L (18.3-44.2) % Meade % (Auto) 9.5 H (2.6-8.5) % Eos % (Auto) 3.4 (0-4.4) % Baso % (Auto) 0.7 (0.2-1.2) % Lymph # (Auto) 1.10 (0.9-3.2) K/mm3 Meade # (Auto) 0.6 (0.1-0.6) K/mm3 Eos # (Auto) 0.2 (0-0.3) K/mm3 Baso # (Auto) 0.0 (0.0-0.1) K/mm3 Abs Immat Gran (auto) 0.01 (0.00-0.031) K/mm3 Absolute Neuts (auto) 4.2 (1.3-6.7) K/mm3 Absolute Nucleated RBC 0.000 (0.0-0.012) K/mm3 Nucleated RBC % 0.0 (0.0-0.2) % Sodium 139 (137-145) mmol/L Potassium 4.3 (3.4-5.0) mmol/L Chloride 101 (98-107) mmol/L Carbon Dioxide 33 H (22-30) mmol/L Anion Gap 5 (4-12) mmol/L BUN 21 H (9-20) mg/dL Creatinine 1.19 (0.7-1.3) mg/dL Estim Creat Clear Calc 47 ml/min Estimated GFR 58 L (59 - ) Glucose 88 (65-110) mg/dL Calcium 9.5 (8.4-10.2) mg/dL Total Bilirubin 0.7 (0.2-1.3) mg/dL AST 47 (17-59) U/L ALT 24 (6-50) U/L Alkaline Phosphatase 65 (38-126) U/L Total Protein 8.0 (6.3-8.2) g/dL Albumin 4.0 (3.5-5.1) g/dL Lipase 102 (23-300) U/L Urine Color Yellow (Yellow) Urine Appearance Clear (Clear) Urine pH 7.5 (5.0-9.0) Ur Specific [place] 1.011 (1.001-1.035) Urine Protein Negative (Negative) mg/dL Urine Glucose (UA) Negative (Negative) mg/dL Urine Ketones Negative (Negative) mg/dL Ur Blood (Man) Negative (Negative) Urine Nitrate Negative (Negative) Urine Bilirubin Negative (Negative) Urine Urobilinogen 0.2 (<2.0) mg/dL Leukocyte Esterase Rfl Negative (Negative) ELLEN/UL <Humaira Elda Guaman PA-C - Last Filed: 03/15/25 17:45> Lab Results 03/15/25 Range/Units 13:28 WBC 6.1 (4.5-10.0) K/mm3 RBC 3.73 L (4.6-6.20) M/mm3 Hgb 11.8 L (14.0-18.0) g/dL Hct 36.8 L (42.0-52.0) % MCV 98.7 (80-100) fl MCH 31.6 (26-34) pg MCHC 32.1 (32-36) g/dl RDW 12.4 (11.5-14.5) % Plt Count 163 (150-375) k/mm3 MPV 9.4 (7.4-10.4) fl Immature Gran % (Auto) 0.2 (0-0.5) % Neut % (Auto) 68.3 (45.5-73.1) % Lymph % (Auto) 17.9 L (18.3-44.2) % Meade % (Auto) 9.5 H (2.6-8.5) % Eos % (Auto) 3.4 (0-4.4) % Baso % (Auto) 0.7 (0.2-1.2) % Lymph # (Auto) 1.10 (0.9-3.2) K/mm3 Meade # (Auto) 0.6 (0.1-0.6) K/mm3 Eos # (Auto) 0.2 (0-0.3) K/mm3 Baso # (Auto) 0.0 (0.0-0.1) K/mm3 Abs Immat Gran (auto) 0.01 (0.00-0.031) K/mm3 Absolute Neuts (auto) 4.2 (1.3-6.7) K/mm3 Absolute Nucleated RBC 0.000 (0.0-0.012) K/mm3 Nucleated RBC % 0.0 (0.0-0.2) % Sodium 139 (137-145) mmol/L Potassium 4.3 (3.4-5.0) mmol/L Chloride 101 (98-107) mmol/L Carbon Dioxide 33 H (22-30) mmol/L Anion Gap 5 (4-12) mmol/L BUN 21 H (9-20) mg/dL Creatinine 1.19 (0.7-1.3) mg/dL Estim Creat Clear Calc 47 ml/min Estimated GFR 58 L (59 - ) Glucose 88 (65-110) mg/dL Calcium 9.5 (8.4-10.2) mg/dL Total Bilirubin 0.7 (0.2-1.3) mg/dL AST 47 (17-59) U/L ALT 24 (6-50) U/L Alkaline Phosphatase 65 (38-126) U/L Total Protein 8.0 (6.3-8.2) g/dL Albumin 4.0 (3.5-5.1) g/dL Lipase 102 (23-300) U/L Urine Color Yellow (Yellow) Urine Appearance Clear (Clear) Urine pH 7.5 (5.0-9.0) Ur Specific [place] 1.011 (1.001-1.035) Urine Protein Negative (Negative) mg/dL Urine Glucose (UA) Negative (Negative) mg/dL Urine Ketones Negative (Negative) mg/dL Ur Blood (Man) Negative (Negative) Urine Nitrate Negative (Negative) Urine Bilirubin Negative (Negative) Urine Urobilinogen 0.2 (<2.0) mg/dL Leukocyte Esterase Rfl Negative (Negative) ELLEN/UL <Wayne Guzman MD - Last Filed: 03/15/25 16:13> Imaging Data Radiologist's impression: ITS Impressions Abdomen X-Ray 03/15/25 15:20 IMPRESSION: 1. Nonobstructive bowel gas pattern with no significant colonic stool. 2. 2 mm right renal stone. <Humaira Guaman PA-C - Last Filed: 03/15/25 17:45> ITS Impressions Abdomen X-Ray 03/15/25 15:20 IMPRESSION: 1. Nonobstructive bowel gas pattern with no significant colonic stool. 2. 2 mm right renal stone. <Wayne Guzman MD - Last Filed: 03/15/25 16:13> Discharge Plan Discharge Clinical Impression: Bowel movement symptom <Humaira Guaman PA-C - Last Filed: 03/15/25 17:45> Patient Disposition: Home <Humaira Guaman PA-C - Last Filed: 03/15/25 17:45> Condition: Stable <Humaira Guaman PA-C - Last Filed: 03/15/25 17:45> Additional Instructions: In order to have an adequate bowel movement you should remain hydrated with water and eat meals with a bulky consistency. <KIMBERLY Alvarez Last Filed: 03/15/25 17:45> Patient Language: Swedish <Humaira Guaman PA-C - Last Filed: 03/15/25 17:45> Prescriptions: No Action aspirin [Adult Low Dose Aspirin] 81 mg tablet,delayed release (DR/EC) 81 mg PO DAILY zinc 50 mg tablet 50 mg PO DAILY multivitamin [Multiple Vitamins] Tablet 1 tablet PO DAILY [id number]-Hmeqyoebi serr [Osteo Bi-Flex (5-Loxin)] 1,500-400-100 mg-unit-mg tablet 1 tablet PO BID losartan-hydrochlorothiazide 100-25 mg tablet 1 tablet PO DAILY sotalol 80 mg tablet 80 mg PO DAILY magnesium 250 mg tablet 250 mg PO DAILY cholecalciferol (vitamin D3) 50 mcg (2,000 unit) capsule 50 mcg PO DAILY doxazosin 8 mg tablet 8 mg PO DAILY Qty: 90 2RF levothyroxine [Euthyrox] 75 mcg tablet 75 mcg PO DAILY Qty: 90 3RF omeprazole 20 mg capsule,delayed release(DR/EC) See Rx Instructions .ROUTE .COMPLEX Qty: 90 3RF Dose Instruction: Take 1 capsule by mouth once daily Rx Instructions: Take 1 capsule by mouth once daily <Humaira Guaman PA-C - Last Filed: 03/15/25 17:45> Follow-up/Referrals: PHYSICIAN,TOY PACKER [Non-Staff] - 1 Week <Humaira Guaman PA-C - Last Filed: 03/15/25 17:45>
[2025-03-15 13:37] LABS: Basophils Percent Auto 0.7 % (0.2-1.2); Eosinophils Absolute Auto 0.2 K/mm3 (0-0.3); Eosinophils Percent Auto 3.4 % (0-4.4); Hematocrit 36.8 % (42.0-52.0); Hemoglobin 11.8 g/dL (14.0-18.0); Immature Granulocyte Absolute 0.01 K/mm3 (0.00-0.031); Immature Granulocyte Percent A 0.2 % (0-0.5); Lymphocytes Percent Auto 17.9 % (18.3-44.2); Mean Corpuscular HGB Conc 32.1 g/dl (32-36); Mean Corpuscular Hemoglobin 31.6 pg (26-34); Mean Corpuscular Volume 98.7 fl (80-100); Mean Platelet Volume 9.4 fl (7.4-10.4); Monocytes Absolute Auto 0.6 K/mm3 (0.1-0.6); Monocytes Percent Auto 9.5 % (2.6-8.5); Neutrophils Absolute Auto 4.2 K/mm3 (1.3-6.7); Neutrophils Percent Auto 68.3 % (45.5-73.1); Platelet Count Result 163 k/mm3 (150-375); Red Blood Count 3.73 M/mm3 (4.6-6.20); Red Cell Distribution Width 12.4 % (11.5-14.5); White Blood Count 6.1 K/mm3 (4.5-10.0)
[2025-03-15 13:40] LABS: Add Urine Microscopic? NO; Appearance Urine Clear (Clear); Bilirubin Urine Negative (Negative); Blood Urine Negative (Negative); Color Urine Yellow (Yellow); Glucose Urine UA Negative (Negative); Ketones Urine Negative (Negative); Leukocyte Esterase Ur Negative LEU/UL (Negative); Nitrate Urine Negative (Negative); Protein Urine Negative (Negative); Specific Grav Ur 1.011 (1.001-1.035); Urobilinogen Urine 0.2 mg/dL (<2.0); pH Urine 7.5 (5.0-9.0)
[2025-03-15 13:57] LABS: Alanine Aminotransferase 24 U/L (6-50); Alkaline Phosphatase 65 U/L (38-126); Anion Gap 5 mmol/L (4-12); Aspartate Amino Transferase 47 U/L (17-59); Bilirubin,Total 0.7 mg/dL (0.2-1.3); Blood Urea Nitrogen 21 mg/dL (9-20); Calcium 9.5 mg/dL (8.4-10.2); Carbon Dioxide 33 mmol/L (22-30); Chloride 101 mmol/L (98-107); Estimated CRCL calculation 47 ml/min; Estimated Glomerular Filt Rate 58; Glucose 88 mg/dL (65-110); Lipase 102 U/L (23-300); Potassium 4.3 mmol/L (3.4-5.0); Sodium 139 mmol/L (137-145)
--- OUTSIDE RECORDS SUMMARY | 2025-03-15 18:02 | XMS_ITS | Encounter Summary ---
Author Organization [facility] Address [address] [place] [address] Care Team Providers Care Mobile Nurse Name Role Phone Lazaro Walters DO Primary Care Provider [phone]- [phone] Encounter Details Date Type Department Care Team (Late st Contact Info) Description 08/01/2022 Lab Requisition [facility] [address] [place] [id number] Lloyd Liu MD [address] [place] [address] Social History Tobacco Use Types Packs/Day Years [...] AM CDT) Case Report Dermatopathology Report Case: [id number] Authorizing Provider: Lloyd Liu MD Collected: 07/31/2022 12:00 AM Ordering Location: [facility] Received: 08/01/2022 02:03 PM [...] specimen consists of a shave biopsy measuring [id number]. Jar 0. Specimen B: Received is one formalin filled container labeled with the patient's name and designated left med to preauricular scar. The specimen consists of a shave biopsy measuring [id number]. Jar 0. Specimen C: Received is one formalin filled container labeled with the patient's name and designated below and post to left earlobe. The specimen consists of a shave biopsy measuring [id number]. Jar 0. Specimen D: Received is one formalin filled container labeled with the patient's name and designated above mid left jawline. The specimen consists of a shave biopsy measuring [id number]. Jar 0. 2 3:37 PM T DERMATOPATHOLOGY [...] characteristic determined by the Dermatopathology Laboratory at [facility], directed by Dr. Marifer Valdez. These tests need not be, and therefore are not, approved by the [place] Food and Drug Administration. The tests are used for clinical purposes. Billing Codes Specimen Charges Stain Charges 27308 74346 [id number] 1 1 1 1 2 3:37 PM [...] PATHOLOGY/CYTOLOGY ORD ERABLES Final Result DERMATOPATHOLOGY LABORATORY [facility] - Department of Dermatology [facility] Medicine [address] [place] [address], [address] [place] [address], [facility] [phone] documented in this encounter Visit Diagnoses Not on filedocumented in this encounter Care Teams Mobile Nurse Relationship Specialty Start Date End Date Lazaro Walters DO [address] [facility] [address] [place] [address] PCP - General 09/10/22 documented as of this encounter
--- OUTSIDE RECORDS SUMMARY | 2025-03-15 18:02 | XMS_ITS | Referral Summary ---
Author Organization [facility] [address] Address [address] [place] [address] Care Team Providers Care Dean Of Students Name Role Phone Lazaro Walters MD Primary Care Provider [phone]- [phone] Allergies No known active allergies Medications multivitamin [...] 1 tablet (75 mcg total) by mouth geological engineer before breakfast 0 08/07/20 21 Active sotaloL [...] treatment with high-risk medication 12/30/2015 Overview (02/22/2017): correction current use of antiarrhythmic drug Upper gastrointestinal hemorrhage 12/30/2015 Overview (02/22/2017): Upper GI bleed Essential hypertension 12/30/2015 Overview (02/22/2017): Essential hypertension 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 Overview (02/22/2017): STATUS-POST PTCA Pure hypercholesterolemia 04/03/2014 Overview (02/21/2017): PURE HYPERCHOLESTEROLEM Coronary arteriosclerosis in [place] artery 04/03 Overview (02/21/2017): CRNRY ATHRSCL NATVE [...] on file 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 Gender Identity Not on file Sexual Orientation Not on file Last Filed Vital Signs Vital Sign Reading Time Taken Comments Blood Pressure 130/78 12/01/2024 2:53 PM STORE TEAM MEMBER Pulse 83 12/01/2024 2:53 PM STORE TEAM MEMBER Temperature 36.7 C (98 F) 09/06/2020 1:12 PM CDT Respiratory Rate 16 10/27/2024 11:51 AM STORE TEAM MEMBER Oxygen Saturation 96% 12/01/2024 2:53 PM STORE TEAM MEMBER Inhaled Oxygen Concentration - - Weight 85.7 kg (189 lb) 12/01/2024 2:53 PM STORE TEAM MEMBER Height 177.8 cm (5' 10 ) 12/01/2024 2:53 PM STORE TEAM MEMBER Body Mass Index 27.12 12/01/2024 2:53 PM STORE TEAM MEMBER Plan of Treatment Not on file Insurance [employer] MEDICARE GOLD [facility] AETNA MEDICARE GOLD A[employer] MEDICARE GOLD Care Teams Dean Of Students Relationship Specialty Start Date End Date Lazaro Walters MD [address] [place] [address] PCP - General 02/15/17
--- OUTSIDE RECORDS SUMMARY | 2025-03-15 18:02 | XMS_ITS | Clinical Summary ---
Author Organization [facility] Address [address], [address] [address] Phone Care Team Providers Care Tester Regulator Name Role Phone BangLazaro michael Cherise [place] [...] age to complete this topic Care Teams Tester Regulator Relationship Specialty Start Date End Date Lazaro Walters DO [address] [place] [address] PCP - General Internal Medicine 06/14/17
--- OUTSIDE RECORDS SUMMARY | 2025-03-15 18:02 | XMS_ITS | Encounter Summary ---
Author Organization [facility] Address [address] [facility] [address] [place] [address] Care Team Providers Care Coin Purse Assembler Name Role Phone Lazaro Walters MD Primary Care Provider [phone]- [phone] Lazaro Walters MD Primary Care Provider [phone]- [phone] Encounter Details Date Type Department Care Team (Late st Contact Info) Description 02/11/2017 Orders Only [facility] ProviderDragan MD [address] [place] [address] Social History Tobacco Use Types Packs/Day Years Used Date Smoking Tobacco: Former Cigarettes Q uit: 11/18/1965 Alcohol Use Standard Drinks/Week Comments No 0 (1 standard drink = 0.6 oz pur e alcohol) Sex and Gender Information Value Date Recorded Sex Assigned at Not on file 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
--- OUTSIDE RECORDS SUMMARY | 2025-03-15 18:02 | XMS_ITS | Encounter Summary ---
Author Organization [facility] Address [address] [facility] [address] [place] [address] Care Team Providers Care Excavator Operator Name Role Phone Lazaro Walters MD Primary Care Provider [phone]- [phone] Lazaro Walters MD Primary Care Provider [phone]- [phone] Encounter Details Date Type Department Care Team (Late st Contact Info) Description 11/01/2016 Orders Only [facility] ProviderDragan MD [address] [place] [address] Social History Tobacco Use Types Packs/Day Years Used Date Smoking Tobacco: Former Cigarettes Q uit: 11/18/1965 Alcohol Use Standard Drinks/Week Comments No 0 (1 standard drink = 0.6 oz pur e alcohol) Sex and Gender Information Value Date Recorded Sex Assigned at Not on file 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
--- OUTSIDE RECORDS SUMMARY | 2025-03-15 18:02 | XMS_ITS | Continuity of Care Document ---
Author Organization [facility] Address [address] [place] [address] [address] [place] [address] Phone Care Team Providers Care Electric Appliance Installer Name Role Phone Riki Soto Unavailable Unavailable Procedures Procedure Date Eye Exam & Treatment Refraction Visual Field Examination(s) Advance Directives Directive Yes / No Effective Date File Name No Information Encounters Encounter Description Practice Location Reason(s) For Visit Diagnoses Date Provider Providers Copied on Encounter [facility] [place] [facility], [address] [place] [address] [address], [place], [place], [id number], tel:[phone] [facility] No Information [address] [facility] [address], [place], [place], [facility], . tel:[phone] [facility] [place] [facility], [address] [place] [address] [address], [place], [place], [id number], tel:[phone] [facility] No Information [address] [facility] [address], [place], [facility], . tel:[phone] Referring Provider: Giovanna Vo [facility] [address], [place], [facility]. tel:[phone] Family History Family Member Type Diagnosis Age At Onset No Information Payers Payer name Insurance type Covered libertarian ID Authoriza tion(s) [employer] Vision Plan CI [id number] Social History Type Description Quantity Date [...]
--- OUTSIDE RECORDS SUMMARY | 2025-03-15 18:02 | XMS_ITS | Clinical Summary ---
Author Organization [facility] Address [address] [facility] [place] [address] Care Team Providers Care Optical Glass Inspector Name Role Phone Lazaro Walters DO Primary Care Provider [phone] [facility],non-owned Affiliates and Associated Physician Practices is amultiple site organization consisting of ambulatory clinics and hospital sitesin [place], [place], [place] and [place]. This disclosure is being madepursuant to the Care Everywhere program and may not contain all information available regarding this patient. Last updated 18.[facility] [employer] Social History Tobacco Use Types Packs/Day Years [...] complete this topic Insurance [employer] Care Teams Optical Glass Inspector Relationship Specialty Start Date End Date Lazaro Walters DO [address] [facility] [address] [place], [place] [id number] PCP - General 09/10/22
--- OUTSIDE RECORDS SUMMARY | 2025-03-15 18:02 | XMS_ITS | Encounter Summary ---
Author Organization [facility] Address [address] [place] [address] Care Team Providers Care Petrophysicist Name Role Phone Lazaro Walters DO Primary Care Provider [phone] Encounter Details Date Type Department Care Team (Late st Contact Info) Description 07/12/[address] [facility] [address] [place] [id number] Lloyd Liu MD [address] [place] [address] Social History Tobacco Use Types Packs/Day Years [...] AM CDT) Case Report Dermatopathology Report Case: [id number] Authorizing Provider: Lloyd Liu MD Collected: 07/11/2022 12:00 AM Ordering Location: [facility] Received: 07/12/2022 04:46 PM Pathologist: Steff Yi MD Specimens: A) - Skin, right anterior edge sideburn B) - Skin, right cheek lateral to pink nevus C) - Skin, right mid jawline D) - Skin, lateral to right chin crease on cheek 2 4:04 PM [facility] DERMATOPATHOLOGY LABORATORY Final Diagnosis Specimen A. SKIN, right anterior edge sideburn: HYPERPLASTIC (HYPERTROPHIC) ACTINIC KERATOSIS (L57.0) Specimen B. SKIN, right cheek lateral to pink nevus: HYPERPLASTIC (HYPERTROPHIC) ACTINIC KERATOSIS (L57.0) Specimen C. SKIN, right mid jawline: BASAL CELL CARCINOMA, NODULAR TYPE (C44.319) Specimen D. SKIN, lateral to right chin crease on cheek: HYPERPLASTIC (HYPERTROPHIC) ACTINIC KERATOSIS (L57.0) 2 4:04 PM [facility] DERMATOPATHOLOGY LABORATORY Clinical History A-D: R/O SCC vs. BCC 2 4:04 PM [facility] DERMATOPATHOLOGY LABORATORY Gross Description Specimen A: Received is one formalin filled container labeled with the patient's name and designated right anterior edge sideburn. The specimen consists of a shave biopsy measuring [id number]. Jar 0. Specimen B: Received is one formalin filled container labeled with the patient's name and designated right cheek lateral to pink nevus. The specimen consists of a shave biopsy measuring [id number]. Jar 0. Specimen C: Received is one formalin filled container labeled with the patient's name and designated right mid jawline. The specimen consists of a shave biopsy measuring [id number]. Jar 0. Specimen D: Received is one formalin filled container labeled with the patient's name and designated lateral to right chin crease on cheek. The specimen consists of a shave biopsy measuring [id number]. Jar 0. 2 4:04 PM [facility] DERMATOPATHOLOGY LABORATORY Microscopic Description Specimen A. [...] characteristic determined by the Dermatopathology Laboratory at [facility], directed by Dr. Marifer Valdez. These tests need not be, and therefore are not, approved by the [place] Food and Drug Administration. The tests are used for clinical purposes. Billing Codes Specimen Charges Stain Charges 78990 [id number] 1 1 1 1 2 4:04 PM [...] PATHOLOGY/CYTOLOGY ORD ERABLES Final Result DERMATOPATHOLOGY LABORATORY [facility] - Department of Dermatology [facility] Medicine [address] [place] [address], [address] [place] [address], [facility] [phone] documented in this encounter Visit Diagnoses Not on filedocumented in this encounter Care Teams Petrophysicist Relationship Specialty Start Date End Date Lazaro Walters DO [address] [place] [address] PCP - General 09/10/22 documented as of this encounter
--- OUTSIDE RECORDS SUMMARY | 2025-03-15 18:02 | XMS_ITS | Clinical Summary ---
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 before breakfast 0 08/07/20 21 Active sotaloL [...] treatment with high-risk medication 12/30/2015 Overview (02/22/2017): retirement current use of antiarrhythmic drug Upper gastrointestinal hemorrhage 12/30/2015 Overview (02/22/2017): Upper GI bleed Essential hypertension 12/30/2015 Overview (02/22/2017): Essential hypertension 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 Overview (02/22/2017): STATUS-POST PTCA Pure hypercholesterolemia 04/03/2014 Overview (02/21/2017): PURE HYPERCHOLESTEROLEM 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 04/03 Overview (02/21/2017): CRNRY ATHRSCL NATVE [...] on file Legal Sex Male 1:56 AM [employer]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[employer] Gender Identity Not on file Sexual Orientation Not on file Obstetrics History Last Filed Vital Signs Vital Sign Reading Time Taken Comments Blood Pressure 130/78 12/01/2024 2:53 PM [employer]PORATE BU[employer]ER Pulse 83 12/01/2024 2:53 PM CORPORATE BU[employer]ER Temperature 36.7 C (98 F) 09/06/2020 1:12 PM CDT Respiratory Rate 16 10/27/2024 11:51 AM CORPORATE BU[employer]ER Oxygen Saturation 96% 12/01/2024 2:53 PM CORPORATE BUYER Inhaled Oxygen Concentration - - Weight 85.7 kg (189 lb) 12/01/2024 2:53 PM CORPORATE BUYER Height 177.8 cm (5' 10 ) 12/01/2024 2:53 PM CORPORATE BUYER Body Mass Index 27.12 12/01/2024 2:53 PM CORPORATE BUYER Plan of Treatment Health Maintenance Due Date Last Done Comments Depression Screening 1940 Fall Risk Assessment 1940 DTaP/Tdap/Td Vaccine (1 - Tdap) 1950 Hepatitis B Screening 1957 Zoster Vaccine (1 of 2) 1989 Well Visit 65+ 02/09/2004 Pneumococcal vaccine 65+ (2 of 2 - PPSV23) 10/10/2016 10/10/2015 Influenza Vaccine (Season Ended) 2025 09/08/2018, 08/18/2017, 09/19/2016, Additional history exists Insurance [employer] MEDICARE GOLD [facility] T MEDICARE GOLD [employer] MEDICARE GOLD Care Teams Animal Husbandry Manager Relationship Specialty Start Date End Date Lazaro Walters MD [address] [place] [address] PCP - General 02/15/17
== END 2025-03-15 16:31 | disposition home or self-care (01) ==
PROVIDERS: Physician Assistant; Emergency Provider Emergency Medicine; PCP Internal Medicine
DX: R19.4 Change in bowel habit (principal); I48.92 Unspecified atrial flutter; I10 Essential (primary) hypertension; E03.9 Hypothyroidism, unspecified; E78.5 Hyperlipidemia, unspecified; Z95.1 Presence of aortocoronary bypass graft; Z85.828 Personal history of other malignant neoplasm of skin; Z87.891 Personal history of nicotine dependence; N20.0 Calculus of kidney; Z79.82 Long term (current) use of aspirin; Z79.899 Other long term (current) drug therapy
CPT/HCPCS: 36415; 74018; 80053; 81003; 83690; 85025; 99283